=== PATIENT | female | born 1995 | race Caucasian/White ===

== ENCOUNTER 2018-08-15 11:36 | Emergency (ER) | payer OTHER ==
[~2018-08-15] VITALS: Ht 157.5 cm; Wt 77.1 kg
[2018-08-15 11:47] VITALS: BP 148/90; Ht 157.5 cm; Wt 77.1 kg
== END 2018-08-15 13:59 | disposition home or self-care (01) ==
LOC: ED 11:36
DX: S40.021A Contusion of right upper arm, initial encounter (principal); S16.1XXA Strain of muscle, fascia and tendon at neck level, initial encounter; V49.50XA Passenger injured in collision with unspecified motor vehicles in traffic accident, initial encounter; Y93.89 Activity, other specified; Y92.413 State road as the place of occurrence of the external cause; Y99.8 Other external cause status